=== PATIENT | female | born 1955 | race Caucasian/White ===

== ENCOUNTER 2017-05-02 09:59 | Inpatient (IN) ==
--- NOTE | 2017-04-29 21:58 | Discharge Summary ---
<Tracey England - Last Filed: 04/29/17 21:55> Date of Encounter: 04/29/17 - Discharge Diagnosis (1) Arthritis of right hip Priority: Primary Status: Acute (2) HLD (hyperlipidemia) Priority: Secondary Status: Chronic Qualifiers: Hyperlipidemia type: unspecified Qualified Code(s): E78.5 - Hyperlipidemia , unspecified (3) Depression Priority: Secondary Status: Chronic Qualifiers: Depression Type: unspecified Qualified Code(s): F32.9 - Major depressive disorder, single episode, unspecified - Discharge Medications Home Medications: Aspirin Enteric Coated [Aspirin EC] 325 mg PO DAILY #21 tablet.dr 04/29/17 [Rx] OxyCODONE Immed Rel [Roxicodone 5 MG] 5 - 10 mg PO Q6HR PRN #40 tablet 04/29/17 [Rx] Fenofibrate Nanocrystallized [Triglide] 160 mg PO QPM 05/02/17 [History] Phytonadione [Vitamin K] 100 mcg PO DAILY 05/02/17 [History] Rosuvastatin Calcium [Crestor] 20 mg PO QPM 05/02/17 [History] Sertraline [Zoloft] 50 mg PO DAILY 05/02/17 [History] Allergies/Adverse Reactions: Allergies No Known Allergies Allergy (Verified 04/26/17 14:28) Primary care physician: Hollie Ty CNP - Patient Status Disposition: Home, Self-Care Condition: Good - Discharge Instructions Follow Up With: Hollie Ty CNP [Primary Care Provider] - - Hospital Course Hospital course: Ms. Dawkins is a 62 year old female - Time Spent with Patient Total time spent providing and/or coordinating discharge services: <Daniel Ramos - Last Filed: 05/03/17 08:05> Date of Encounter: 05/03/17 Time of Encounter: 08:04 - Discharge Diagnosis (1) Arthritis of right hip Priority: Primary Status: Acute (2) HLD (hyperlipidemia) Priority: Secondary Status: Chronic Qualifiers: Hyperlipidemia type: unspecified Qualified Code(s): E78.5 - Hyperlipidemia , unspecified (3) Depression Priority: Secondary Status: Chronic Qualifiers: Depression Type: unspecified Qualified Code(s): F32.9 - Major depressive disorder, single episode, unspecified (4) Acute blood loss anemia Priority: Primary Status: Acute Primary care physician: Hollie Ty CNP - Patient Status Functional capacity at discharge: uses cane/walker Overall status at discharge: patient is progressing back to baseline - Hospital Course Hospital course: Ms. Dawkins is a 62 year old female The patient had an uneventful postoperative course. They received antibiotics and physical therapy and were discharged in stable condition. There will follow -up in the office in 2 weeks. Aspirin DVT prophylaxis - Time Spent with Patient Total time spent providing and/or coordinating discharge services:
[2017-05-02] MEDS ORDERED: CeFAZolin Pre 2,000 MG/100 ML 2,000 MG/100 ML BAG IVPB ONE (10:19)
[2017-05-02] MEDS ORDERED: Lidocaine -MPF 1% 2 ML VIAL ID ONE (10:19)
[2017-05-02] MEDS ORDERED: Albuterol 2.5 MG/3 ML NEBULIZER IH ONE (10:19)
--- NOTE | 2017-05-02 10:26 | History & Physical Report ---
Date of Encounter: 05/02/17 Time of Encounter: 10:26 24 Hour HP Update - Instructions Instructions: If the History and Physical is less than 30 days old and was completed prior to A.M. admission and or procedure and has NOT been updated on calendar day of procedure please complete this update prior to performing procedure. - Update Patient reports changes in Medical Condition: No Changes in examination, assessment, or condition: No Changes in Medication: No Preop tests/diagnostics Reviewed: Yes Surgery Remains Indicated: Yes Consent for Planned Operative Procedure(s) Verified: Yes - Pre-Operative Checklist Preoperative Checklist Indicated: No Prophylactic Antibiotic Ordered: Yes Is VTE Prophylaxis Indicated?: Yes
[2017-05-02] MEDS ORDERED: Ringers Solution, Lactated 1,000 ML IVC SCH ×2 (10:30→15:20)
[2017-05-02] MEDS ORDERED: *HR* Propofol 200 MG/20 ML VIAL IVP ONE (11:23)
[2017-05-02] MEDS ORDERED: Lidocaine -MPF 2% 2 ML VIAL ONE (11:24)
[2017-05-02] MEDS ORDERED: *HR* FentaNYL (PF) 100 MCG/2 ML VIAL ONE (11:25)
[2017-05-02] MEDS ORDERED: *HR* Midazolam HCl 2 MG/2 ML VIAL ONE (11:25)
--- NOTE | 2017-05-02 11:26 | Anesthesia Evaluation PreOp ---
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: Denies Any Significant HX Other Medical History: Other (ibs, hiatal hernia) Anesthesia History: No Prior Anesthetic Complications, Past Anesthesia (tommy, l knee, tonsils, cscope) Alcohol Use: none Drug use: none Medications and Allergies Aspirin Enteric Coated [Aspirin EC] 325 mg PO DAILY #21 tablet.dr 04/29/17 [Rx] OxyCODONE Immed Rel [Roxicodone 5 MG] 5 - 10 mg PO Q6HR PRN #40 tablet 04/29/17 [Rx] Fenofibrate Nanocrystallized [Triglide] 160 mg PO QPM 05/02/17 [History] Phytonadione [Vitamin K] 100 mcg PO DAILY 05/02/17 [History] Rosuvastatin Calcium [Crestor] 20 mg PO QPM 05/02/17 [History] Sertraline [Zoloft] 50 mg PO DAILY 05/02/17 [History] Allergies No Known Allergies Allergy (Verified 04/26/17 14:28) - Meds/Allergy Pre-op Review Medications Reviewed: Yes Allergies Reviewed: Yes Beta Blockers on Current Med List: No Anesthesia Results - Labs Laboratory Tests 03/31/17 04/26/17 04/26/17 11:14 14:40 14:40 Hgb 12.2 Hct 35.6 Plt Count 205 PT 10.0 INR 0.9 APTT 30.2 Sodium Potassium Creatinine 0.82 04/26/17 14:40 Hgb Hct Plt Count PT INR APTT Sodium 141 Potassium 4.0 Creatinine Anesthesia Exam O2 Sat Height 1.68 m Height 1.68 m Weight 70.307 kg Weight 70.307 kg O2 Sat by Pulse Oximetry 96 Vital Signs Temp Pulse Resp BP Pulse Ox 97.9 F 82 18 139/73 96 05/02/17 10:31 05/02/17 10:31 05/02/17 10:31 05/02/17 10:31 05/02/17 10:31 Height: 1.68 Weight: 70 NPO (# of Hours): >8 - HEENT Pupil (Motor): Pupils equal, EOMI Mallampati: II Teeth: Edentulous Denture Type: Upper: Complete, Lower: Partial Oral Opening: Greater than 3 - ELECTRONIC PREPRESS TECHNICIAN LOC: Oriented ELECTRONIC PREPRESS TECHNICIAN Motor: Normal RUE, Normal LUE, Normal RLE, Normal LLE, Normal Face ELECTRONIC PREPRESS TECHNICIAN Sensory: Normal: RUE, LUE, RLE, LLE, Face - Cardiac Rhythm: Regular Murmur: None - Pulmonary Breath Sounds: bilateral Clear Respiratory Effort: Symmetrical Anesthesia Assess/Plan ASA Score: 2 Modified [place] Scale for Level of Consciousness: Cooperative, oriented, and tranquil Anesthetic Plan: General Monitoring Plan: Standard Monitors Recovery Plan: PACU
[2017-05-02] MEDS ORDERED: CloNIDine Patch 0.1 MG PATCH (WEEKLY) TD SCH (11:45)
[2017-05-02] MEDS ORDERED: Ondansetron 4 MG/2 ML VIAL ONE (12:38)
[2017-05-02] MEDS ORDERED: Dexamethasone 4 MG/ML VIAL ONE (12:38)
[2017-05-02] MEDS ORDERED: Ketorolac 30 MG/ML VIAL ONE (12:38)
[2017-05-02] MEDS ORDERED: Ondansetron 4 MG/2 ML VIAL IVP PRN ×2 (12:41→15:20)
[2017-05-02] MEDS ORDERED: *HR* HYDROmorphone 2 MG/ML SYRINGE ONE (12:49)
--- NOTE | 2017-05-02 13:20 | Orthopedic Operative Note ---
Date of procedure: 05/02/17 Pre-op diagnosis: Right hip arthritis Post-op diagnosis: same Procedure: Procedure: Right Total Hip Replacment Estimated blood loss: 200 cc Hardware: Metal and polyethylene replacement. Biomet DM Cup: 54 G7 fin cup Femoral size 13 echo full profile lateralized stem Head: +6 head with Saima Procedural Notes: Operative procedure: The patient was brought to the operating room and placed on the operating room table. After general anesthesia was administered the patient was placed in the lateral decubitus position with the operative leg up. All pressure points were padded appropriately and the head was stabilized in the neutral position. The operative extremity was prepped and draped in the sterile surgical fashion patient received IV antibiotic prior to skin incision. A standard posterior approach is made to the operative hip, the incision was made through the skin and subcutaneous tissue hemostasis was obtained with Bovie cautery. Using careful sharp dissection the fascia was identified and incised exposing the external rotators. The external rotators were released off the greater trochanter and tagged with #2 FiberWire suture. The capsule was T'd open and the hip was brought into internal rotation. Patient noted to have grade 4 arthritic changes femoral head. The femoral neck cut was made at the appropriate level. An anterior capsulotomy was performed for the anterior retractor. Soft tissues removed from the acetabulum. Patient noted to have grade 4 arthritic changes acetabulum. Acetabulum was first reamed medially, and then reamed in 15 degrees of anteversion and 45 degrees off the horizontal. It was reamed up to the appropriate size 54 The appropriate-sized 54 acetabular cup was impacted in place in 15 degrees of anteversion and 45 degrees off the horizontal. This had good fit and fixation. The hip was brought back in to internal rotation and prepared with the jukebox routeman followed by the canal finder followed by broaching process in 20 degrees anteversion. It was broached up to the appropriate size 13 The femoral implant was impacted in place in 20 degrees of anteversion. Trial reduction found the hip to be stable with 6 head and Saima. The trials were removed and the real implants were impacted in place. The hip was reduced, patient had apparent equal leg lengths. The hip had excellent stability with forward flexion to 90 degrees adduction of 30 degrees and internal rotation of 60 degrees. The hip had no shuck. The hips after 2 minutes with a Betadine saline solution. It was irrigated out with 2 L of pulse irrigation. The external rotators were reattached to drill holes in the greater trochanter. Fascia was closed with a running #2 PDS suture. The deep tissue was irrigated and closed deep with #1 PDS suture superficially with 0 PDS suture and skin was closed with Dermabond and skin jordan. The patient was placed in a sterile dressing and abduction pillow. The patient was extubated and transferred to the recovery room in stable condition. Anesthesia: GETA Surgeon: Daniel Ramos Veneer Puller: Tracey England Condition: stable Disposition: PACU
[2017-05-02] MEDS ORDERED: *HR* HYDROmorphone (PF) 1 MG/ML SYRINGE ONE (13:41)
[2017-05-02] MEDS: *HR* HYDROmorphone (PF) 1 MG/ML SYRINGE IVP PRN ×2 (13:45→13:50)
--- NOTE | 2017-05-02 13:59 | Anesthesia Evaluation Post Op ---
Date of Encounter: 05/02/17 Time of Encounter: 13:59 - Vital Signs Vital Signs: Vital Signs/O2 Sat, Most Current Temp Pulse Resp BP Pulse Ox 97.9 F 82 18 139/73 96 05/02/17 10:31 05/02/17 10:31 05/02/17 10:31 05/02/17 10:31 05/02/17 10:31 - Lungs Lungs: Clear Ascult./Percussion - Airway Airway: Non-obstructed - Cardiovascular Regular Rate - Mental Status Mental Status: Alert & Oriented, Answers Appropriately - Pain Pain Scale: 4 Pain Scale used: Numeric (1 - 10) - Nausea Vomiting Nausea Vomiting: Not Present - Hydration Hydration: Ice chips, Has not voided - Discharge PostOp Status: Transfer Patient to floor
[2017-05-02 14:31] LABS: Hemoglobin 10.7 g/dL (11.5-15.4)
[2017-05-02] MEDS ORDERED: Naloxone 0.4 MG/ML INJ IVP PRN (15:20)
[2017-05-02] MEDS ORDERED: Sennosides 8.6 MG TABLET PO PRN (15:20)
[2017-05-02] MEDS ORDERED: MOM Conc 10 ML UD.LIQ PO PRN (15:20)
[2017-05-02] MEDS ORDERED: Temazepam 15 MG CAPSULE PO PRN (15:20)
[2017-05-02] MEDS ORDERED: *HR* HYDROmorphone (PF) 1 MG/ML SYRINGE IVP PRN (15:20)
[2017-05-02] MEDS ORDERED: *HR* OxyCODONE Immed Rel 5 MG TABLET PO PRN (15:20)
[2017-05-02] MEDS: ceFAZolin 2,000 MG in D5% in Water 100 ML IVPB SCH ×2 (16:40→23:38)
[2017-05-02] MEDS: Ascorbic Acid 500 MG TABLET PO SCH (17:19)
[2017-05-02] MEDS: *HR* Enoxaparin 30 MG/0.3 ML SYRINGE SQ SCH (17:19)
[2017-05-02] MEDS ORDERED: *HR* Enoxaparin 30 MG/0.3 ML SYRINGE SQ SCH (18:00)
[2017-05-02] MEDS ORDERED: Fenofibrate 54 MG TABLET PO SCH (18:00)
[2017-05-02] MEDS: *HR* OxyCODONE Immed Rel 5 MG TABLET PO PRN (20:30)
[2017-05-03] MEDS: *HR* OxyCODONE Immed Rel 5 MG TABLET PO PRN (00:30)
[2017-05-03 05:35] LABS: Hematocrit 26.5 % (35.3-44.9)
[2017-05-03 05:39] LABS: Hemoglobin 8.8 g/dL (11.5-15.4)
[2017-05-03] MEDS: *HR* Enoxaparin 30 MG/0.3 ML SYRINGE SQ SCH (05:43)
[2017-05-03 05:52] LABS: BUN/Creatinine Ratio 12 (6-26); Blood Urea Nitrogen 10 mg/dL (7-20); Calcium 8.8 mg/dL (8.6-10.8); Carbon Dioxide 22 mEq/L (19-29); Chloride 106 mEq/L (98-109); Glucose 142 mg/dL (70-99); Osmolality,Calculated 285 (280-300); Potassium 3.9 mEq/L (3.5-4.5); Sodium 137 mEq/L (136-145); eGFR For African Americans > 60 (> 60); eGFR For Non-African Americans > 60 (> 60)
--- NOTE | 2017-05-03 08:05 | Orthopedics Progress Note ---
Date of Encounter: 05/03/17 Time of Encounter: 08:05 - Assessment and Plan (1) Arthritis of right hip Current Visit: Yes Status: Acute (2) HLD (hyperlipidemia) Current Visit: Yes Status: Chronic Qualifiers: Hyperlipidemia type: unspecified Qualified Code(s): E78.5 - Hyperlipidemia , unspecified (3) Depression Current Visit: Yes Status: Chronic Qualifiers: Depression Type: unspecified Qualified Code(s): F32.9 - Major depressive disorder, single episode, unspecified (4) Acute blood loss anemia Current Visit: Yes Status: Acute Subjective Interval history: Patient was seen this morning doing well without complaints. Afebrile vital signs stable. Operative extremity: Neurovascularly intact Dressing clean dry and intact Calves nontender Assessment and plan: Continue with postoperative care Hemoglobin 8.8 asymptomatic discharged today Objective Vital signs: Vital Signs Temp Pulse Resp BP Pulse Ox 05/03/17 07:24 98.3 F 72 16 91/52 92 05/03/17 00:25 98.1 F 71 16 113/63 94 05/03/17 00:21 98.1 F 71 16 113/63 93 05/02/17 20:22 98.4 F 81 16 116/74 96 05/02/17 17:31 95 16 101/67 96 05/02/17 17:20 78 16 101/67 97 05/02/17 16:37 78 16 101/67 97 05/02/17 15:26 75 16 114/84 94 05/02/17 15:00 98.1 F 85 16 135/81 96 05/02/17 14:30 98.1 F 85 16 116/74 96 05/02/17 14:18 97.8 F 74 16 130/62 96 05/02/17 14:08 86 16 127/78 96 05/02/17 13:58 98.1 F 75 16 139/81 96 05/02/17 13:48 68 16 141/70 98 05/02/17 13:38 80 16 149/89 97 05/02/17 13:28 98.2 F 88 12 169/81 96 05/02/17 10:31 97.9 F 82 18 139/73 96 Intake and Output 05/02/17 05/03/17 05/03/17 23:59 07:59 15:59 Intake Total 600 / 600 Output Total 500 / 500 600 / 600 Balance 100 / 100 -600 / -600 Intake: IV Fluids 600 / 600 Lactated Ringers 1,000 ML 500 / 500 @ 25 mls/hr IVC .Q24H [facility] Rx#:[id number] Ancef 2,000 MG In 100 / 100 Dextrose 5% 100 ML @ 200 mls/hr IVPB Q8HR [facility] Rx#: [id number] Output: Urine 500 / 500 600 / 600 Other: Weight 71.2 kg Patient Weight 05/03/17 23:59 Weight 71.2 kg - Labs CBC & BMP: 05/03/17 04:20 05/03/17 04:20 Labs: Abnormal lab results Hgb 8.8 g/dL (11.5-15.4) L D 05/03/17 04:20 Hct 26.5 % (35.3-44.9) L 05/03/17 04:20 Glucose 142 mg/dL (70-99) H 05/03/17 04:20 - VTE Documentation of Mechanical Device: Venous foot pump, device Consult Discharge Plan - Plan Referrals: Hollie Ty, SHUTTLE ROUTE VEHICLE OPERATOR [Primary Care Provider] -
[2017-05-03] MEDS: Ascorbic Acid 500 MG TABLET PO SCH (08:41)
[2017-05-03] MEDS ORDERED: (Phytonadione [Vitamin K] 100 MCG) PO SCH (09:00)
[2017-05-03] MEDS ORDERED: Multivit/Ca/Min/Fe/FA 1 TAB TABLET PO SCH (09:00)
[2017-05-03 10:59] VITALS: BP 93/54
== END 2017-05-03 13:30 | disposition home health service (06) | DRG 470 ==
LOC: SAMDAY 09:59 → 3NENU 14:46
PROVIDERS: ADMIT Orthopaedic Surgery; ATTEND Orthopaedic Surgery